=== PATIENT | male | born 1980 | race Hispanic/Latino ===

== ENCOUNTER 2017-08-17 18:25 | Emergency (ER) | payer OTHER ==
[~2017-08-17] VITALS: Ht 167.6 cm; Wt 77.1 kg
[2017-08-17] MEDS ORDERED: TETANUS,DIPTH,PERTUSS P/F (BOOSTRIX) 0.5 ML VIAL IM ONE (19:15)
--- NOTE | 2017-08-17 19:18 | ED Upper Extremity ---
General Chief Complaint: Laceration Stated Complaint: RT THUMB LAC Nursing Triage Note: PT STATES HE CUT HIS R THUMB WITH A RAZOR BLADE WHILE AT WORK. Nursing Sepsis Screen: No Definite Risk Source: patient Exam Limitations: no limitations History of Present Illness Time seen by provider: 19:14 Initial Comments To ER with reports a laceration to the palmar side of the thumb that occurred from a sharp object at work. He is employed at [employer]. Unknown tetanus vaccination status. Onset: just prior to arrival Severity: moderate Pain/Injury Location: left thumb Modifying Factors: Worse With Movement Allergies and Home Medications Allergies Coded Allergies: No Known Drug Allergies (Unverified , 08/17/17) Constitutional: see HPI EENTM: see HPI Respiratory: no symptoms reported Cardiovascular: no symptoms reported Genitourinary: no symptoms reported Musculoskeletal: no symptoms reported Skin: see HPI Past Sspcgcx-Fydgsl-Colvyv Hx Patient Social History Alcohol Use: Denies Use Recreational Drug Use: No Smoking Status: Never a Smoker Recent Foreign Travel: No Contact w/Someone Who Travel: No Recent Infectious Disease Expo: No Recent Hopitalizations: No Physical Abuse: No Sexual Abuse: No Mistreated: No Fear: No Seasonal Allergies Seasonal Allergies: No Surgeries History of Surgeries: No Respiratory History of Respiratory Disorde: No Cardiovascular History of Cardiac Disorders: No Neurological History of Neurological Disord: No Genitourinary History of Genitourinary Disor: No Gastrointestinal History of Gastrointestinal Di: No Musculoskeletal History of Musculoskeletal Dis: No Endocrine History of Endocrine Disorders: No HEENT History of HEENT Disorders: No Cancer History of Cancer: No Psychosocial History of Psychiatric Problem: No Suicide Risk Score: 0 Integumentary History of Skin or Integumenta: No Blood Transfusions History of Blood Disorders: No Physical Exam Vital Signs Vital Sign - Last 12Hours 08/17/17 19:07 Pulse 60 Resp 14 B/P (MAP) 127/91 (103) Capillary Refill : Less Than 3 Seconds General Appearance: WD/WN, no apparent distress HEENT: PERRL/EOMI, normal ENT inspection Neck: non-tender, full range of motion Respiratory: normal breath sounds, no respiratory distress, no accessory muscle use Gastrointestinal: normal bowel sounds, non tender Shoulder: normal inspection Elbow/Forearm: normal inspection, non-tender, Left Wrist: Yes normal inspection, Yes non-tender Hand: Left, laceration (1 cm laceration to the palmar side of the thumb distally with active bleeding easily controlled with proximal pressure. Finger tourniquet was applied, this was scrubbed with chlorhexidine/saline solution and irrigated with the same. Closed with Dermabond.) Neurologic/Psychiatric: alert, normal mood/affect, oriented x 3 Skin: normal color, warm/dry Laceration Repair : Other Closure Supply: Wound Adhesive Progress/Results/Core Measures Results/Orders My Orders Orders - BERYL LEVIN APRN Dipht,Pertuss(Acell),Tet Adult (Boostrix (08/17/17 19:15) Vital Signs/I&O Vital Sign - Last 12Hours 08/17/17 19:07 Pulse 60 Resp 14 B/P (MAP) 127/91 (103) Blood Pressure Mean: 103 Departure Impression Impression: Primary Impression: Finger laceration Disposition: 01 HOME, SELF-CARE Condition: Stable Departure-Patient Inst. Decision time for Depature: 19:16 Referrals: NO,LOCAL PHYSICIAN (PCP/Family) Primary Care Physician Patient Instructions: Laceration Repair With Glue (DC) Add. Discharge Instructions: 1. Allow the glue to fall off on its own in 3-5 days. Wear the finger splint for the next 2-3 days. All discharge instructions reviewed with patient and/or family. Voiced understanding. BERYL LEVIN APRN Aug 17, 2017 19:18
[2017-08-17 19:35] VITALS: BP 127/91
== END 2017-08-17 19:35 | disposition home or self-care (01) ==
LOC: ER 18:30
DX: S61.011A Laceration without foreign body of right thumb without damage to nail, initial encounter (principal); Z23 Encounter for immunization; W26.8XXA Contact with other sharp object(s), not elsewhere classified, initial encounter; Y92.59 Other trade areas as the place of occurrence of the external cause
CPT/HCPCS: 90471; 90715